=== PATIENT | female | born 1970 | race Caucasian/White ===

== ENCOUNTER → 2020-10-01 | Outpatient (CLI) | payer OTHER | LOC: LAB 13:10 | PROVIDERS: ATTEND Surgery | DX: Z01.812 Encounter for preprocedural laboratory examination (principal); K82.8 Other specified diseases of gallbladder; Z20.828 Contact with and (suspected) exposure to other viral communicable diseases | CPT/HCPCS: U0003 ==

== ENCOUNTER 2020-10-04 06:10 | Day surgery (SDC) | payer OTHER ==
[~2020-10-04] VITALS: Ht 165.1 cm; Wt 84.0 kg
[~2020-10-04 06:10] MED LIST: ACETAMINOPHEN 500 MG TABLET PO PRN
[2020-10-04] MEDS ORDERED: BUPIVACAINE-EPI 0.25%-1:200000 MPF 30 ML VIAL. INJ ONE (06:30)
[2020-10-04] MEDS: IV RINGERS,LACTATED 1000ML 1,000 ML IV SCH ×2 (06:41→08:37)
[2020-10-04] MEDS ORDERED: SCOPOLAMINE 1.5MG PATCH. TD ONE (06:45)
[2020-10-04] MEDS ORDERED: fentaNYL PF VIAL 100 MCG/2 ML VIAL IV PRN (07:00)
[2020-10-04] MEDS ORDERED: PROCHLORPERAZINE 10 MG/2 ML VIAL. IV PRN (07:00)
[2020-10-04] MEDS ORDERED: ONDANSETRON PF 4 MG/2 ML VIAL. IV PRN (07:00)
[2020-10-04] MEDS ORDERED: fentaNYL PF VIAL 100 MCG/2 ML VIAL ONE ×2 (07:22→08:33)
[2020-10-04] MEDS ORDERED: ROCURONIUM 50 MG/5 ML VIAL. ONE (07:22)
[2020-10-04] MEDS ORDERED: LIDOCAINE 2% PF 5 ML VIAL. ONE (07:54)
[2020-10-04] MEDS ORDERED: DEXAMETHASONE SOD PHOS 4 MG/ML VIAL ONE (07:54)
[2020-10-04] MEDS ORDERED: KETOROLAC 30 MG/ML VIAL. ONE (07:54)
[2020-10-04] MEDS ORDERED: ONDANSETRON PF 4 MG/2 ML VIAL. ONE (07:54)
[2020-10-04] MEDS ORDERED: PROPOFOL 10 MG/ML (20ML) VIAL. IV ONE (07:54)
[2020-10-04] MEDS ORDERED: GLYCOPYRROLATE 1 MG/5 ML VIAL. ONE (07:55)
[2020-10-04] MEDS ORDERED: NEOSTIGMINE METHYLSULFATE 5 MG/5 ML SYRINGE. ONE (07:55)
--- NOTE | 2020-10-04 08:06 | PDOC4 ---
Operative Note Operative Note Date: October 042019 at 0803 Preoperative diagnosis: Gallbladder polyps Postoperative diagnosis: Same Procedure: Laparoscopic cholecystectomy Surgeon: Viral Specimen: Gallbladder Dictation: Patient is a 50-year-old female whose had some postprandial nausea ultrasound showed polyps within the gallbladder. Procedure of laparoscopic cholecystectomy was explained to the patient detail risk benefits were also discussed including bleeding infection injury to intra-abdominal contents possible necessitating further open operations alternatives to this procedure also discussed with the patient who seemed to understand and gave both verbal and written consent to have the procedure performed. Patient was taken to the operating room placed in the supine position general anesthesia was initiated once patient was sleeping intubated her abdomen is prepped and draped usual sterile fashion using ChloraPrep. Area in the left upper quadrant was injected quarter percent Marcaine with epinephrine incision made with a blade scalpel and a 5 mm Visiport was placed under direct visualization in the abdomen creating pneumoperitoneum once this complete 5 mm scope was placed in the abdomen was inspected no other red maladies were noted. A 11 mm port was placed just to the right of the umbilicus and 2 5 mm ports one placed in the right midabdomen and one in the right lateral abdomen under direct visualization. The dome of the gallbladder is grasped retracted cephalad the infundibulum the gallbladder is grasped tract laterally exposing the triangle of adherent tissues the triangle were taken down blunt dissection exposing the cystic duct and cystic artery both were doubly clipped and transected the gallbladder was taken off the liver with hook electrocautery placed in the Endo Catch bag removed and the umbilicus right upper quadrant is irrigated and suctioned dry hemostasis deemed be appropriate and the pneumoperitoneum was reduced all ports were removed the fascial defect at the umbilicus was closed with a [id number] 0 Vicryl suture and skin was reapproximated all port sites for subcuticular Monocryl Mastisol Steri-Strips and island dressings were applied. Patient was awakened and extubated in the operating room taken to recovery in stable condition all sponge instrument needle counts listed as correct estimated blood loss 10 mL OSKAR DIAS MD Oct 04, 2020 08:05
--- NOTE | 2020-10-04 08:07 | DISCH ---
DISCHARGE INSTRUCTIONS Condition on Discharge Condition on Discharge: Stable Activity After Discharge Activity Instructions for Disc: Avoid exertion Other activity instructions: No lifting more than 20 pounds for 2 weeks Diet after Discharge Diet after Discharge: Low Fat Wound Incision Care Other wound/incision instructi: May shower in 24 hours Contacting the after DC Call your doctor for: If your condition worsens Follow-Up Follow up with: Dr. Dias in 2 weeks OSKAR DIAS MD Oct 04, 2020 08:07
[2020-10-04] MEDS ORDERED: oxyCODONE/APAP 5/325 1 TAB TABLET PO ONE (08:15)
[2020-10-04] MEDS ORDERED: OXYC1TAB15 PO (08:16)
[2020-10-04] MEDS ORDERED: SEVOFLURANE 61 TO 120 MINUTES. IH ONE (08:30)
[2020-10-04] MEDS ORDERED: hydrALAZINE 20 MG/ML VIAL. ONE (08:30)
[2020-10-04] MEDS ORDERED: MORPHINE SULFATE 2 MG/ML VIAL. ONE (08:33)
[2020-10-04] MEDS: fentaNYL PF VIAL 100 MCG/2 ML VIAL IV PRN ×2 (08:36→08:48)
[2020-10-04] MEDS: MORPHINE SULFATE 2 MG/ML VIAL. IV PRN ×2 (09:00→09:11)
[2020-10-04] MEDS ORDERED: HYDROmorphone 2 MG/ML VIAL ONE (09:20)
[2020-10-04] MEDS: HYDROmorphone 2 MG/ML VIAL IV PRN ×2 (09:21→09:38)
[2020-10-04 09:22] VITALS: BP 143/86
[2020-10-04] MEDS ORDERED: PROCHLORPERAZINE 10 MG/2 ML VIAL. ONE (09:39)
--- NOTE | 2020-10-07 19:11 | PATHOLOGY ---
[facility] Accession Number: [id number] . 01 Material submitted: . gallbladder - GALLBLADDER AND CONTENTS . 01 Clinical history: . BILIARY DYSKINESIA . 02 Diagnosis: Gallbladder, laparoscopic cholecystectomy: - Cholesterolosis, focal. - Chronic cholecystitis. . (JPM:mm; 10/07/2020) [facility] 10/07/2020 1619 Local . 02 Comment: There are no calculi identified within the gallbladder lumen or specimen container. There is no evidence of malignancy. . (JPM:mml; 10/07/2020) . 02 Electronically signed: . Osbaldo Das MD, Pathologist NPI- [id number] . 01 Gross description: . Received in formalin labeled "Snitkoff, Zuly, gallbladder and contents" is an intact cholecystectomy specimen measuring 7.5 x 3.6 x 3.1 cm. The serosa is pink-del toro and smooth and the specimen is opened to reveal dark green velvety mucosa without polyps or masses. The average wall thickness is 0.1 cm. Calculi are not present within the gallbladder or container. [employer] sections of the fundus and body and the cystic duct margin are submitted in A1. ([facility] [place]; 10/05/2020) [facility] 10/05/2020 1025 Local . 02 Pathologist provided ICD-10: K81.1, K82.4 . 02 CPT . 977904 Specimen Comment: A courtesy copy of this report has been sent to [phone], [phone] Specimen Comment: [id number] Specimen Comment: Report sent to / DR WHITFIELD Performed at: 01 [facility] [address] [place] [address] [address], [place], [place] [id number] MD Lux Sharpe MD Phone: [phone] Performed at: 02 [facility] [address] [place], [place] [id number] MD Osbaldo Das MD Phone: [phone]
== END 2020-10-04 10:07 | disposition home or self-care (01) ==
LOC: SURG 06:10 → EDUNIT# 07:30 → SURG 10:07
PROVIDERS: ATTEND Surgery
DX: K82.4 Cholesterolosis of gallbladder (principal); K21.9 Gastro-esophageal reflux disease without esophagitis; Z90.710 Acquired absence of both cervix and uterus; Z98.890 Other specified postprocedural states; Z88.0 Allergy status to penicillin; Z79.899 Other long term (current) drug therapy
CPT/HCPCS: 47562; J0360; J0780; J1100; J1170; J1885; J1956; J2270; J2405; J2704; J2710; J3010; J3490